=== PATIENT | male | born 2000 | race Caucasian/White ===

== ENCOUNTER 2024-09-08 16:38 | Emergency (ER) | payer MEDICAID ==
[~2024-09-08] VITALS: Ht 185.4 cm; Wt 131.0 kg
[2024-09-08 16:40] VITALS: PULSE 80; RESP 16; TEMP 98.4; O2SAT 100
--- NOTE | 2024-09-08 20:05 | RADIOLOGY REPORT ---
CLINICAL INDICATION: right medial foot pain TECHNIQUE: 3 views of the right foot DI FOOT, COMPLETE (3VW MIN) Comparison: None FINDINGS/IMPRESSION: There is no evidence of acute fracture or dislocation. 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 Suggestion of mild soft tissue swelling along the medial foot.
--- NOTE | 2024-09-08 20:20 | Physician Documentation ---
History of Present Illness ~ Chief Complaint: Foot pain Stated Complaint: FOOT PAIN Time Seen by MD: 17:57 OK to notify your PCP?: Yes Source: patient Mode of Arrival: POV Exam Limitations: no limitations HPI 24-year-old male presents with right foot pain. He is worried he may have a stress fracture in his foot. This began today while he was walking around at his work which requires him to walk around for most of his job. He reports h aving a sharp pain in the arch of his right foot that does not radiate anywhere. He does not have any known trauma or other injuries to this foot. He has good range motion good CSM good sensation. He has not taken anything for his pain prior to arrival. Tetanus witin 5 years: Yes (04/2024) Medication Reconciliation Allergies: Coded Allergies: No Known Allergies (Unverified , 09/08/24) Past Medical History Smoking Status: Current every day smoker Review of Systems All Other Systems at this time: Reviewed and Negative Physical Exam Vital Signs: RN Vital Signs have been reviewed: Yes, Temperature: 98.4, Heart Rate: 80, Respiratory Rate: 16, Pulse Oximetry: 100, Weight: 131.000 Oxygen Flow Rate: 0 Pulse Oximetry Reflects: adequate oxygenation Physical Exam General: Alert, no distress. HEENT: No injection, moist mucous membranes. Neck: Full range of motion. Respiratory: No respiratory distress, equal chest rise and fall. Chest: No accessory muscle use. Cardiovascular: Regular rate and rhythm. Gastrointestinal: Nondistended. Extremities: Right foot normal range of motion, no deformity or bruising, point tenderness to palpation of right arch on the medial side, good CSM, good pulses, good sensation. Neurologic: Oriented x4. Psychiatric: Normal mood and affect. Skin: Normal color, warm and dry. Progress Results/Orders Reviewed/noted all lab results: Yes Results/Orders Orders - BR[facility]N SU Foot, Complete (3vw Min) (09/08/24 18:35) Ortho Orders (09/08/24 ) Completed Orders - [facility] SU Acetaminophen 325mg Tablet (Tylenol Tabl (09/08/24 18:15) Naproxen Tablet (Naprosyn Tablet) (09/08/24 18:15) Foot, Complete (3vw Min) (09/08/24 18:35) Medications Received in ER Medications (Trade) Dose Ordered Sig/Shakira Route PRN Reason Start Time Stop Time Status Last Admin Dose Admin (Tylenol tablet) 650 mg ONCE ONCE PO 09/08/24 18:15 09/08/24 18:17 DC 09/08/24 18:36 650 MG (Naprosyn tablet) 500 mg ONCE ONCE PO 09/08/24 18:15 09/08/24 18:17 DC 09/08/24 18:37 500 MG Vital Signs 09/08/24 16:40 Temp 98.4 Pulse 80 Resp 16 Pulse Ox 100 O2 Flow Rate 0 EKG/XRAY/CT/US/VASC/MRI Bone/Soft Tissue X-Ray (Ext.) : Additional Comment Right foot x-ray as interpreted by me; no acute fracture, no soft tissue swelling, no dislocation, or foreign body. Medical Decision Making Additional info obtained from: old records Findings 24-year-old male presents with right foot pain in his arch which is sharp in nature and worse after walking today at work. His physical exam is is normal but he does have some point tenderness to his medial right arch. His x-ray shows no acute fracture or dislocation. Naproxen and Tylenol for pain relief which did provide some relief for him. We gave We did discuss the limitations of an x-ray and that sometimes small fractures are not seen and he may need a repeat x-ray in 7-10 days if he is still having the symptoms. Due to this we placed him in a postop shoe to help provide extra support as a shoes he was currently wearing are not supportive whatsoever. We discussed RICE therapy. We discussed following up with his primary care provider as he may need further imaging on an outpatient basis. he had a can return back here for any new or worsening symptom. He states he will be able to take Tylenol and ibuprofen at home. We did discuss the possibility of it being plantar fasciitis although the exam and history does not quite fit. Discussed treatment options such as rolling his arch on a frozen water bottle to help with pain relief and wearing supportive shoes. Foot Diff Dx:Considerations: Include: Arthritis, Cellulitis, Contusion, Dislocation, Fracture-metatarsal, Fracture-phalynx, Fracture-tarsal, Gout, Hematoma, Ingrown toenail, Malunion, Neurovascular injury, Puncture Departure Disposition: 01 HOME / SELF CARE / HOMELESS Impression: Primary Impression: Foot pain Condition: Stable Discharge Instructions: Sprains Additional Instructions: Use the postop shoe for extra support. As discussed the x-ray does not show any fracture at this time however it does show some soft tissue swelling and you do have an accessory navicular bone. As discussed sometimes the x-ray may miss small fractures initially but a repeat x-ray in 7-10 days can show a healing bone better if it were to be broken. Please use Tylenol and/or ibuprofen for pain relief keep your foot elevated to help with swelling and you can use ice and heat for pain relief as well. Follow up with her primary care provider within the next 5 days and return back here for any new or worsening symptoms. Departure Forms: Excuse form Work or School Excused From: Work Excuse beginning now through the following date: Sep 15, 2024 Referrals: NO PRIMARY CARE PROVIDER (PCP) Education Educated: Patient Educated regarding: diagnosis, treatment, prognosis, need for follow up Additional Comment Medical Screen Exam This patient recieved a medical screening examination. After reviewing the individual's medical complaints with presenting symptoms and performing an appropriate physical examination, it was determined that no immediate life- threatening emergency medical condition is present. This individual is also not a women having contractions. Signature Scribe Signature: . Attestation: Scribed for [place] Sup by [place] Su NP . 09/08/24 23:34 Parts of this note were created using [employer] voice recognition software program. While efforts were made to correct any mistakes made by this voice recognition software program, nonsensical phrases may remain in this note. In addition, there may be errors and syntax, grammar, content and spelling. BR[facility]N SU Sep 08, 2024 20:20
== END 2024-09-08 20:41 | disposition home or self-care (01) ==
LOC: ER 16:39
DX: M79.671 Pain in right foot (principal); F17.200 Nicotine dependence, unspecified, uncomplicated
CPT/HCPCS: 73630; 99283; L3260

== ENCOUNTER 2024-09-17 10:45 | Emergency (ER) | payer MEDICAID ==
[~2024-09-17] VITALS: Ht 185.4 cm; Wt 128.7 kg
[2024-09-17 10:48] VITALS: BP 129/84; PULSE 80; RESP 18; O2SAT 97
--- NOTE | 2024-09-17 11:43 | RADIOLOGY REPORT ---
PROCEDURE: Right foot radiographs. INDICATION: FOOT PAIN TECHNIQUE: 3 views of the right foot were obtained. COMPARISON: DI FOOT, COMPLETE (3VW MIN) on DOS: 09/08/24 FINDINGS: There is no evidence of fracture or dislocation. Joint spaces are maintained. The soft tis sues are unremarkable. IMPRESSION: 1. No fracture or dislocation.
--- NOTE | 2024-09-17 11:58 | Physician Documentation ---
History of Present Illness ~ Chief Complaint: Foot pain Stated Complaint: XRAY RECHECK Time Seen by MD: 11:11 OK to notify your PCP?: Yes Source: patient Mode of Arrival: POV Exam Limitations: no limitations HPI 24-year-old male returns to the emergency department for repeat x-ray. I saw this patient approximately 10 days ago for right foot pain as he was concerned a possible stress fracture occurred. His X kaitlynn were negative for an acute fracture but did have some soft tissue swelling and an extra navicular bone. He has a job where he is on his feet and walking for many hours and he had started having some pain. He has not been taking any medications for pain relief but is still experiencing some pain with ambulation. He is no longer wearing the postop shoe. Tetanus witin 5 years: Yes (04/2024) Medication Reconciliation Allergies: Coded Allergies: No Known Allergies (Unverified , 09/08/24) Review of Systems All Other Systems at this time: Reviewed and Negative Physical Exam Vital Signs: RN Vital Signs have been reviewed: Yes, Temperature: 98.6, Source: Temporal, Heart Rate: 80, Respiratory Rate: 18, BP: 129/84, Pulse Oximetry: 97, Weight: 128.650 Oxygen Flow Rate: 0 Pulse Oximetry Reflects: adequate oxygenation Physical Exam General: Alert, no distress. HEENT: No injection, moist mucous membranes. Neck: Full range of motion. Respiratory: No respiratory distress, equal chest rise and fall. Chest: No accessory muscle use. Cardiovascular: Regular rate and rhythm. Gastrointestinal: Nondistended. Extremities: Normal range of motion, no deformity. Ambulatory, no redness or soft tissue swelling to right foot. Neurologic: Oriented x4. Psychiatric: Normal mood and affect. Skin: Normal color, warm and dry. Progress Results/Orders Reviewed/noted all lab results: Yes Results/Orders Orders - YANCI SU [employer] Foot, Complete (3vw Min) (09/17/24 11:11) Completed Orders - [facility] [employer] Foot, Complete (3vw Min) (09/17/24 11:11) Vital Signs 09/17/24 10:48 Temp 98.6 Pulse 80 Resp 18 B/P (MAP) 129/84 Pulse Ox 97 O2 Flow Rate 0 EKG/XRAY/CT/US/VASC/MRI Bone/Soft Tissue X-Ray (Ext.) : Additional Comment Right foot x-ray as interpreted by me; no joint effusion, no acute fracture, no soft tissue swelling, no dislocation, or foreign body. Medical Decision Making Additional info obtained from: old records Findings I took care of this patient approximately 10 days ago for right foot pain. He is still experiencing some pain with ambulation although he is no longer take gain any medications for pain and is not wearing the postop shoe. He is requesting to return back to work and wanted to make sure that there was no fracture. Last time we discussed that sometimes tiny fractures do not show up on the initial x-ray but show up on an x-ray 7-10 days later so that is why he return. X-ray today does not show any acute fracture or healing fracture. Physical exam is unremarkable. Can return back to work. We discussed that you can use Tylenol or ibuprofen for pain relief as well as to keep his foot elevated especially after he is at work. We discussed that sprains can sometimes take 6-8 weeks to fully resolve and he understands this. Departure Disposition: 01 HOME / SELF CARE / HOMELESS Impression: Primary Impression: Foot pain Condition: Stable Discharge Instructions: Sprains Additional Instructions: You may return back to work. Today's x-ray did not show any fracture. Please keep foot elevated after your work shift to help reduce swelling. Use Tylenol or ibuprofen as well as ice/heat to help with pain relief. With the primary care provider within the next week and return back here for any new or worsening symptoms. Referrals: NO PRIMARY CARE PROVIDER (PCP) Education Educated: Patient Educated regarding: diagnosis, treatment, prognosis, need for follow up Additional Comment Medical Screen Exam This patient recieved a medical screening examination. After reviewing the individual's medical complaints with presenting symptoms and performing an appropriate physical examination, it was determined that no immediate life- threatening emergency medical condition is present. This individual is also not a women having contractions. Signature Scribe Signature: . Attestation: Scribed for Yanci Su [employer] by Yanci Su NP . 09/17/24 11:58 Parts of this note were created using [employer] voice recognition software program. While efforts were made to correct any mistakes made by this voice recognition software program, nonsensical phrases may remain in this note. In addition, there may be errors and syntax, grammar, content and spelling. YANCI SU [facility] Sep 17, 2024 11:58
[2024-09-17 12:09] VITALS: TEMP 98.6
== END 2024-09-17 12:10 | disposition home or self-care (01) ==
LOC: ER 10:45
DX: M79.671 Pain in right foot (principal)
CPT/HCPCS: 73630; 99283